=== PATIENT | female | born 1985 | race Caucasian/White ===

== ENCOUNTER → 2020-12-14 15:33 | Outpatient (CLI) | payer BC, SELFPAY ==
[2020-12-14 16:16] LABS: Add Manual Diff / Slide Review NO; Basophils Absolute Auto 100 /uL (0-100); Basophils Percent Auto 0.8 % (0-2); Eosinophils Absolute Auto 100 /uL (0-450); Eosinophils Percent Auto 1.9 % (2-4); Hematocrit 40.5 % (36-46); Hemoglobin 13.5 g/dL (12.0-16.0); Lymphocytes Absolute Auto 2000 /uL (1100-4500); Lymphocytes Percent Auto 29.7 % (25-40); Mean Corpuscular HGB Conc 33.3 % (30-36); Mean Corpuscular Hemoglobin 30.7 PG (26-34); Mean Corpuscular Volume 92.2 fL (80-100); Monocytes Absolute Auto 500 /uL (0-900); Monocytes Percent Auto 7.5 % (3-14); Neutrophils Absolute Auto 4100 /uL (1500-7000); Neutrophils Percent Auto 60.1 % (50-75); Platelet Count 318 X10^3/uL (150-400); Red Blood Cell Count 4.39 X10^6/uL (4.0-5.2); Red Cell Distribution Width 13.6 % (11.6-14.8); White Blood Cell Count 6.8 X10^3/uL (4.5-11.0)
[2020-12-14 16:29] LABS: Alanine Aminotransferase 13 IU/L (<35); Albumin 4.5 g/dL (3.5-5.0); Albumin Globulin Ratio 1.5 (1.0-2.8); Alkaline Phosphatase 59 U/L (38-126); Aspartate Aminotransferase 26 IU/L (14-36); BUN Creatinine Ratio 18.3 (6-22); Bilirubin Total 0.2 mg/dL (0.2-1.3); Blood Urea Nitrogen 13 mg/dL (7-17); Calcium 9.3 mg/dL (8.4-10.2); Carbon Dioxide 28 mmol/L (22-32); Chloride 104 mmol/L (98-107); Estimated Glomerular Filt Rate > 60.0 mL/min (>60); Globulin 3.1 g/dL (1.7-4.1); Glucose 117 mg/dL (70-100); HEMOLYSIS < 15 (0-50); Potassium 4.2 mmol/L (3.4-5.1); Sodium 140 mmol/L (137-145); Total Protein 7.6 g/dL (6.3-8.2)
[2020-12-14 17:38] LABS: Free T4, Direct Thyroxine 0.88 ng/dL (0.78-2.19)
[2020-12-14 17:52] LABS: Thyroid Stimulating Hormone 1.39 uIU/mL (0.47-4.68)
[2020-12-15 12:09] LABS: Parathyroid Hormone, Intact 51 pg/mL (15-65)
== END ==
PROVIDERS: PCP Registered Nurse; Referring Provider Registered Nurse; Visit Provider Registered Nurse
DX: E07.9 Disorder of thyroid, unspecified (principal)
CPT/HCPCS: 36415; 80053; 82310; 83970; 84439; 84443; 85025

== ENCOUNTER → 2020-12-21 09:39 | Outpatient (CLI) | payer BC, SELFPAY ==
--- NOTE | 2020-12-21 09:41 | DI.US.S_ITS ---
PROCEDURE: US THYROID INDICATIONS: THYROID DISORDER TECHNIQUE: Real-time scanning was performed of the thyroid gland, with image documentation. COMPARISON: None. FINDINGS: Right: Thyroid lobe measures 6.2 x 1.8 x 2.1 cm, and is homogeneous in echotexture. Left: Surgically absent. Isthmus: 3.0 mm thick. Nodule number: 1 Location: Right mid Size: 7 mm Composition: Solid Echogenicity: Hypoechoic Shape: wider than tall. Margins: Smooth Echogenic foci: None Total points: 4 ACR TI-RADS category: Moderately suspicious IMPRESSION: Moderately suspicious sub cm right thyroid nodule. Given the small size, no follow-up is warranted. ACR TI-RADS definitions and recommendations: TI-RADS 1 (benign): 0 points. FNA not needed. TI-RADS 2 (not suspicious): 2 points. FNA not needed. TI-RADS 3 (mildly suspicious): 3 points. * FNA if 2.5 cm or larger, follow up if 1.5 cm or larger (at 1, 3, and 5 years). TI-RADS 4 (moderately suspicious): 4-6 points. * FNA if 1.5 cm or larger, follow up if 1 cm or larger (at 1, 2, 3, and 5 years). TI-RADS 5 (highly suspicious): 7 points or more. * FNA if 1 cm or larger, follow up if 0.5 cm or larger (every year for 5 years). * Dictated by: Keanu Dawn Kenneth Interpreted: Julito Mcallister MD on 12/21/2020 at 15:03 Transcribed by: KAMILLA on 12/21/2020 at 15:04 Approved by: Julito Mcallister M.D. on 12/21/2020 at 15:53
== END ==
PROVIDERS: PCP Registered Nurse; Referring Provider Registered Nurse; Visit Provider Registered Nurse
DX: E04.1 Nontoxic single thyroid nodule (principal)
CPT/HCPCS: 76536

== ENCOUNTER → 2020-12-24 16:35 | Outpatient (CLI) | payer BC, SELFPAY ==
--- NOTE | 2020-12-24 16:37 | DI.RAD.S_ITS ---
PROCEDURE: XR SHOULDER RT MIN 2V INDICATIONS: RUE pain TECHNIQUE: 3 views of the shoulder were acquired. COMPARISON: None. FINDINGS: Bones: No fractures or dislocations. No suspicious bony lesions. Visualized ribs appear intact. Soft tissues: No suspicious soft tissue calcifications. IMPRESSION: No acute fracture. No osseous lesion. If symptoms and/or clinical suspicion for pathology persist, further assessment with repeat, or advanced imaging (e.g., CT, MRI, or bone scan) may be helpful for further assessment. Dictated by: Kaila Powers M.D. on 12/24/2020 at 16:52 Approved by: Kaila Powers M.D. on 12/24/2020 at 16:53
== END ==
PROVIDERS: PCP Registered Nurse; Referring Provider Registered Nurse; Visit Provider Registered Nurse
DX: M79.601 Pain in right arm (principal)
CPT/HCPCS: 73030

== ENCOUNTER → 2021-01-13 06:32 | Outpatient (CLI) | payer BC, SELFPAY ==
--- NOTE | 2021-01-13 06:38 | DI.MRI.S_ITS ---
PROCEDURE: MR SHOULDER RT WO CON INDICATIONS: shoulder pain and swelling TECHNIQUE: Noncontrast oblique coronal T2 fast spin echo with fat saturation, oblique sagittal T1 spin echo and T2 fast spin echo with fat saturation, axial T1 spin echo and T2 fast spin echo with fat saturation through the shoulder. COMPARISON: None. FINDINGS: Image quality: Excellent. Rotator cuff: Mild T2 signal elevation throughout the supraspinatus and infraspinatus tendons at the humeral insertion site, indicating tendinopathy. Superimposed low-grade partial-thickness intrasubstance tearing of the mid/posterior supraspinatus and anterior infraspinatus tendons at the humeral insertion sites. The supraspinatus, infraspinatus, and subscapularis tendons otherwise appear intact throughout. Sagittal images demonstrate no muscle atrophy. Bones and bursae: No bone marrow contusions or fractures. Moderate acromioclavicular joint degeneration. The acromion demonstrates conventional anatomy, without an os acromiale. No pathologic subacromial-subdeltoid or subcoracoid bursal fluid is present. Capsule and soft tissues: There is linear high T2 signal intensity within the posterior inferior labrum. The long head of the biceps tendon demonstrates normal location and morphology. The rotator interval appears normal, without fibrosis. The coracohumeral ligament is normal in thickness. IMPRESSION: 1. Supraspinatus and infraspinatus tendinopathy with superimposed low-grade partial-thickness tears. No full-thickness rotator cuff tear. 2. Acromioclavicular joint osteoarthritis. 3. Possible glenoid labral tearing. Dictated by: Kaila Powers M.D. on 01/13/2021 at 9:54 Approved by: Kaila Powers M.D. on 01/13/2021 at 9:57
== END ==
PROVIDERS: PCP Registered Nurse; Referring Provider Registered Nurse; Visit Provider Registered Nurse
DX: M25.511 Pain in right shoulder (principal); M75.111 Incomplete rotator cuff tear or rupture of right shoulder, not specified as traumatic; M19.011 Primary osteoarthritis, right shoulder
CPT/HCPCS: 73221

== ENCOUNTER → 2021-02-04 08:12 | Outpatient (CLI) | payer BC, SELFPAY ==
[2021-02-04 08:39] LABS: COVID19 -Nasal RAPID Negative (Negative)
== END ==
PROVIDERS: PCP Registered Nurse; Visit Provider Physician Assistant
DX: R05 Cough (principal); R50.9 Fever, unspecified
CPT/HCPCS: 87635

== ENCOUNTER → 2021-02-04 08:40 | Outpatient (CLI) | payer BC, SELFPAY ==
--- NOTE | 2021-02-04 08:41 | DI.RAD.S_ITS ---
PROCEDURE: XR CHEST 2V INDICATIONS: fever/cough 7 days TECHNIQUE: 2 views of the chest were acquired. COMPARISON: None. FINDINGS: Surgical changes and devices: None. Lungs and pleura: Lungs are clear. No pleural effusions or pneumothorax. Mediastinum: Mediastinal contours are normal. Heart size is normal. Bones and chest wall: No suspicious bony abnormalities. Soft tissues appear unremarkable. IMPRESSION: Normal for age, source of current fever and cough symptoms is not seen. Dictated by: Carmelo Aguilar M.D. on 02/04/2021 at 9:07 Approved by: Carmelo Aguilar M.D. on 02/04/2021 at 9:08
== END ==
PROVIDERS: PCP Registered Nurse; Referring Provider Physician Assistant; Visit Provider Physician Assistant
DX: R50.9 Fever, unspecified (principal); R05 Cough
CPT/HCPCS: 71046; 87635